=== PATIENT | male | born 1990 | race African-American/Black ===

== ENCOUNTER 2024-10-15 18:57 | Emergency (ER) | payer SELFPAY ==
[2024-10-15 19:09] VITALS: BP 144/95; BMI 19.3
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
[2024-10-15 19:47] LABS: Venous Blood Gas B.E. -1.6 mmol/L (-4 to +4); Venous Blood Gas HCO3 23.7 mmol/L (22-27); Venous Blood Gas O2 Sat % 99.7 %; Venous Blood Gas pCO2 41 mmHg (35-48); Venous Blood Gas pH 7.37 (7.32-7.43); Venous Blood Gas pO2 133 mmHg (30-50)
[2024-10-15 19:50] LABS: % Basophils 0.8 % (0-2); % Eosinophils 14.3 % (0-6); % Immature Granulocytes 0.5 % (0-0.5); % Lymphocytes 22.7 % (20.5-51.1); % Monocytes 6.1 % (1.7-9.3); % Neutrophils 55.6 % (42.2-75.2); Absolute Basophils 0.1 10^3/uL (0-0.2); Absolute Eosinophils 1.9 10^3/uL (0-0.7); Absolute Immature Granulocytes 0.1 10^3/uL (0-0.05); Absolute Monocytes 0.8 10^3/uL (0.1-0.6); Absolute Neutrophils 7.3 10^3/uL (1.4-6.5); Hemoglobin 15.6 g/dL (13.0-18.0); Mean Corp Hgb Conc. 34.7 g/dL (33.0-37.0); Mean Corpuscular Hgb 28.4 pg (27.0-31.0); Mean Corpuscular Volume 81.8 fL (80.0-94.0); Mean Platelet Volume 8.7 fL (7.4-10.4); Nucleated Red Blood Cells % 0 % (-); Platelet Count 345 10^3/uL (130-400); Red Cell Dist. Width 13.4 % (11.5-14.5); White Blood Cell Count 13.1 10^3/uL (4.8-10.8)
[2024-10-15 19:58] LABS: INR 1.01; PT 13.6 Sec (11.4-14.6)
[2024-10-15 19:59] LABS: APTT 24.7 Sec (23.4-35.0)
[2024-10-15 20:04] LABS: ALT (SGPT) 22 U/L (0-50); AST (SGOT) 30 U/L (17-59); Acetaminophen < 10 ug/ml (10-30); Albumin 4.5 g/dl (3.5-5.0); Alcohol 295 mg/dl; Alkaline Phosphatase 49 U/L (38-126); Blood Urea Nitrogen 7 mg/dl (9-20); Calcium 9.6 mg/dl (8.4-10.2); Carbon Dioxide 24 mmol/L (22-30); Chloride 107 mmol/L (98-107); Estimated Creatinine Clearance 83 ml/min; Glucose 95 mg/dl (70-99); Potassium 3.7 mmol/L (3.5-5.1); Salicylate < 1.0 mg/dl (2.0-20.0); Sodium 145 mmol/L (135-145); Total Bilirubin 0.7 mg/dl (0.2-1.3); Total Protein 7.4 g/dl (6.3-8.2); eGFR > 60.00
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
[2024-10-15 20:39] LABS: Amphetamines Negative (Negative); Barbiturates Negative (Negative); Benzodiazepines Negative (Negative); Buprenorphine Negative (Negative); Cocaine Negative (Negative); Marijuana Negative (Negative); Methadone Negative (Negative); Methamphetamines Negative (Negative); Opiates Negative (Negative); Phencyclidine Negative (Negative); Tricyclic Antidepressants Negative (Negative)
--- NOTE | 2024-10-16 07:11 | ED.ADDNOTE ---
ED Addendum
ED Addendum
ED Addendum Note:
07:00
Patient is awake and alert, oriented x 3. Offers no complaints. Adamantly denies suicidal thoughts or plan.
He is however homeless. Had been residing in a jail in the past but currently [address]
Will consult case management to potentially assist with emergency housing.
Otherwise patient is deemed medically cleared for discharge.
--- NOTE | 2024-10-16 10:16 | CM ---
Addendum entered by Mindy Ferro 10/16/24 13:50:
[facility] unable to help with accommodations for patient, patient was directed to return to [facility], patient declined, patient made aware that there are no shelters in [place], other option would be [facility], but since
patient's ID is from [place] patient made aware that he would be able to access more services if he returned to [place]. Patient declined.
Original Note:
supply manager reviewed patient's chart and met with patient and patient states he does not remember much of what happened yesterday, patient reports that he has been living in [place], in a halfway for a while and then patient left the halfway.
Patient states he is originally from [place], Per admissions report patient was using Alcohol prior to admission and disease case manager rn reached out to Ban at [facility] to review with patient and discuss any needs however patient declined services.
Patient states he typically does not use alcohol and that is why he declined services.
supply manager reached put to [facility] to see if they could pay for a hotel for patient, message left but no answer, other option would be a halfway for patient, and that would mean patient would return to [facility].
Plan; To follow up with above.
[2024-10-16 11:12] VITALS: BP 138/81
== END 2024-10-16 11:21 | disposition home or self-care (01) ==
LOC: EMR 18:57
PROVIDERS: EMERGENCY PHYSICIAN Emergency Medicine
DX: F10.129 Alcohol abuse with intoxication, unspecified (principal); F17.200 Nicotine dependence, unspecified, uncomplicated; Z59.00 Homelessness unspecified
CPT/HCPCS: 99284; 70450; 80053; 80143; 80179; 80306; 82077; 82805; 85025; 85610; 85730; 93005